=== PATIENT | female | born 1985 | race Caucasian/White ===

== ENCOUNTER 2020-09-29 06:50 | Emergency (ER) | payer BC ==
[2020-09-29] MEDS: Ketorolac 60 MG/2 ML SDV IM ONE (07:13)
[2020-09-29] MEDS: Orphenadrine 60 MG/2 ML Inj IM ONE (07:14)
[2020-09-29 07:22] VITALS: BP 110/59; PULSE 65
--- NOTE | 2020-09-29 07:48 | EDM.PDOC ---
ED HPI GENERAL MEDICAL PROBLEM - General Chief Complaint: General Stated Complaint: BACK PAIN Time Seen by Provider: 09/29/20 07:20 Source of Information: Reports: Patient History Limitations: Reports: No Limitations - History of Present Illness INITIAL COMMENTS - FREE TEXT/NARRATIVE: patient presented to the ER with a c/o lower back pain. She is a [employer] and was on her way to work this morning when she sneezed and suddenly felt a sharp pain on her lower back L>R. no tingling or numbness. no known prior back pain or injury. no incontinence. reports her pain as 8 out of 10 and sharp -- making it hard for her to ambulate She decided to come to the ER straight for evaluation Onset: Sudden Duration: Minutes: (30) Location: Reports: Back Quality: Reports: Sharp Severity: Moderate Improves with: Reports: Immobilization Worsens with: Reports: Movement Left Lower Back Pain Score (Numeric/FACES): 8 - Related Data Allergies Allergy/AdvReac Type Severity Reaction Status Date / Time No Known Allergies Allergy Verified 09/29/20 07:28 Home Meds: Home Meds Levothyroxine Sodium 150 mcg PO DAILY 10/29/15 [History] Metoprolol Succinate 25 mg PO DAILY 09/29/20 [History] busPIRone HCl [busPIRone] 30 mg PO BID 09/29/20 [History] Past Medical History - Past Health History Medical/Surgical History: Denies Medical/Surgical History Cardiovascular History: Reports: Hypertension Social & Family History - Family History Family Medical History: No Pertinent Family History - Tobacco Use Tobacco Use Status *Q: Current Every Day Tobacco User Years of Tobacco use: 15 Packs/Tins Daily: 0.5 - Caffeine Use Caffeine Use: Reports: Coffee, Soda - Recreational Drug Use Recreational Drug Use: No ED ROS GENERAL - Review of Systems Review Of Systems: See Below Constitutional: Reports: No Symptoms HEENT: Reports: No Symptoms Respiratory: Reports: No Symptoms Cardiovascular: Reports: No Symptoms Skin: Reports: No Symptoms Neurological: Reports: No Symptoms ED EXAM, GENERAL - Physical Exam Exam: See Below Exam Limited By: No Limitations General Appearance: Alert, WD/WN, No Apparent Distress Eye Exam: Bilateral Eye: EOMI Respiratory/Chest: No Respiratory Distress Cardiovascular: Normal Peripheral Pulses, Regular Rate, Rhythm Back Exam: Normal Inspection, Decreased Range of Motion, Muscle Spasm, Paraspinal Tenderness Neurological: Alert, Oriented, No Motor/Sensory Deficits, Abnormal Gait Psychiatric: Normal Affect Course - Vital Signs Last Recorded V/S: Last Vital Signs Temp 35.9 C L 09/29/20 06:51 Pulse 65 09/29/20 06:51 Resp 16 09/29/20 06:51 BP 110/59 L 09/29/20 06:51 Pulse Ox 99 09/29/20 06:51 - Orders/Labs/Meds Orders: Active Orders 24 hr Category Date Time Status Lumbar Spine 2 or 3V [CR] Stat Exams 09/29/20 07:42 Ordered Meds: Medications Discontinued Medications Generic Name Dose Route Start Last Admin Trade Name Freq PRN Reason Stop Dose Admin Ketorolac Tromethamine 60 mg 09/29/20 07:49 Ketorolac 60 Mg/2 Ml Sdv IM 09/29/20 07:50 ONETIME ONE Methylprednisolone Sodium Succinate 40 mg 09/29/20 08:08 Methylprednisolone Sodium Succinate 40 Mg/1 Ml Sdv IM 09/29/20 08:09 ONETIME ONE Orphenadrine Citrate 60 mg 09/29/20 07:49 Orphenadrine 60 Mg/2 Ml Inj IM 09/29/20 07:50 ONETIME ONE - Re-Assessments/Exams Free Text/Narrative Re-Assessment/Exam: IM Toradol and IM Norflex were given - minimal improvement in pain Xray lumbar spine was done - showed straightening of the lumbar spine - but not e/o fractures or anterolisthesis. IM solumedrol was given most likely lumbar strain - will prescribe muscle relaxants and po prednisone. note for day off today. f/u with PCP as needed Departure - Departure Time of Disposition: 08:11 Disposition: Home, Self-Care 01 Condition: Fair Clinical Impression: Lumbar spine strain Qualifiers: Encounter type: initial encounter Qualified Code(s): S39.012A - Strain of muscle, fascia and tendon of lower back, initial encounter - Discharge Information *PRESCRIPTION DRUG MONITORING PROGRAM REVIEWED*: Not Applicable *COPY OF PRESCRIPTION DRUG MONITORING REPORT IN PATIENT MEG: Not Applicable Instructions: Muscle Strain, [id number], Lumbosacral Strain Forms: ED Department Discharge Sepsis Event Note (ED) - Evaluation Sepsis Screening Result: No Definite Risk - Focused Exam Vital Signs: Vital Signs Temp Pulse Resp BP Pulse Ox 09/29/20 06:51 35.9 C L 65 16 110/59 L 99 - Problem List & Annotations (1) Lumbar spine strain SNOMED Code(s): 068889027 Code(s): S39.012A - STRAIN OF MUSCLE, FASCIA AND TENDON OF LOWER BACK, INIT Status: Acute Priority: Medium Qualifiers: Encounter type: initial encounter Qualified Code(s): S39.012A - Strain of muscle, fascia and tendon of lower back, initial encounter - Problem List Review Problem List Initiated/Reviewed/Updated: Yes - My Orders Last 24 Hours: My Active Orders 09/29/20 07:42 Lumbar Spine 2 or 3V [CR] Stat - Assessment/Plan Last 24 Hours: My Active Orders 09/29/20 07:42 Lumbar Spine 2 or 3V [CR] Stat Plan: - recommend to ice the affected area - follow up with you PCP in 3-7 days as needed if symptoms didn't improve - take your new medications as prescribed - avoid lifting objects heavier than 20 lbs for 3 days.
[2020-09-29] MEDS: methylPREDNISolone Sodium Succinate 40 MG/1 ML SDV IM ONE (08:15)
--- NOTE | 2020-09-29 10:10 | CR ---
Date of Service: 09/29/2020 Clinical Data: Pain. LUMBAR SPINE: No priors. There is a transitional vertebral body at the S1 level. The vertebral bodies are of average height and in good alignment. No acute fracture or dislocation. There are small disk margins spurs at multiple levels. There is mild disk space narrowing at the L4-5 level. There is mild facet joint hypertrophy in the mid and lower lumbar spine. No other significant findings. If the patient's symptoms persist, an MRI scan should be considered. [id number] [facility]
== END 2020-09-29 08:27 | disposition home or self-care (01) ==
LOC: LB.ED 06:50
DX: S39.012A Strain of muscle, fascia and tendon of lower back, initial encounter (principal); I10 Essential (primary) hypertension; Z72.0 Tobacco use; Z79.899 Other long term (current) drug therapy; X58.XXXA Exposure to other specified factors, initial encounter
CPT/HCPCS: 72100; 96372; 99283; J1885; J2360; J2920